=== PATIENT | female | born 1995 | race Caucasian/White ===

== ENCOUNTER → 2017-06-16 | Outpatient (CLI) | payer OTHER ==
[2017-06-16 18:21] LABS: ABSOLUTE EOSINOPHILS # (AUTO) 0.1 10^3/uL (0.0-0.6); ABSOLUTE LYMPHOCYTES (AUTO) 1.9 10^3/uL (0.5-4.7); ABSOLUTE MONOCYTES (AUTO) 0.7 10^3/uL (0.1-1.4); ABSOLUTE NEUT (AUTO) 9.4 10^3/uL (1.7-8.2); BASOPHILS % (AUTO) 0.3 % (0-2); EOSINOPHILS % (AUTO) 1.2 % (0-6); HEMATOCRIT 36.2 % (36.0-47.0); HEMOGLOBIN 12.3 g/dL (12.0-15.5); HGB HCT DIFFERENCE 0.7; LYMPHOCYTES % (AUTO) 15.7 % (13-45); MEAN CORPUSCULAR HEMOGLOBIN 28.7 pg (27.0-33.4); MEAN CORPUSCULAR HGB CONC 33.8 g/dL (32.0-36.0); MEAN CORPUSCULAR VOLUME 85 fl (80-97); MONOCYTES % (AUTO) 5.4 % (3-13); RED BLOOD COUNT 4.27 10^6/uL (3.72-5.28); RED CELL DISTRIBUTION WIDTH 14.2 % (11.5-14.0); SEGMENTED NEUTROPHILS % (AUTO) 77.4 % (42-78); WHITE BLOOD COUNT 12.1 10^3/uL (4.0-10.5)
[2017-06-16 18:50] LABS: ALBUMIN 3.8 g/dL (3.5-5.0); ANION GAP 10 (5-19); BLOOD UREA NITROGEN 9 mg/dL (7-20); CALCIUM 9.1 mg/dL (8.4-10.2); CARBON DIOXIDE 24 mmol/L (22-30); CHLORIDE 105 mmol/L (98-107); CREATININE RESULT 0.57 mg/dL (0.52-1.25); GLUCOSE 75 mg/dL (75-110); POTASSIUM 4.1 mmol/L (3.6-5.0); SODIUM 138.5 mmol/L (137-145); TOTAL PROTEIN 6.7 g/dL (6.3-8.2); URIC ACID 4.1 mg/dL (2.5-6.2)
[2017-06-16 18:52] LABS: ALANINE AMINOTRANSFERASE 23 U/L (9-52); ALKALINE PHOSPHATASE 77 U/L (38-126); ASPARTATE AMINO TRANSFERASE 13 U/L (14-36); BILIRUBIN,DIRECT 0.3 mg/dL (0.0-0.4); BILIRUBIN,TOTAL 0.5 mg/dL (0.2-1.3); LDH 369 U/L (313-618)
== END ==
LOC: OD 17:17
PROVIDERS: ATTEND Student in an Organized Health Care Education/Training Program
DX: O13.9 Gestational [pregnancy-induced] hypertension without significant proteinuria, unspecified trimester (principal)
CPT/HCPCS: 36415; 80053; 83036; 83615; 84550; 85025

== ENCOUNTER 2017-08-22 15:13 | Outpatient (CLI) | payer OTHER ==
--- NOTE | 2017-08-22 17:00 | Non Stress Test Report ---
Non Stress Test Datetime Report Generated by CPN: 08/22/2017 16:51 DEMOGRAPHIC EGA NST: 34.6 INDICATION Indication for Study: Ordered by Provider; Other Indication for Study (NST) Other: maternal obesity MONITORING Monitor Explained: Monitor Explained; Test Explained; Patient Verbalized Understanding Time on Monitor: 08/22/2017 15:30 Time off Monitor: 08/22/2017 16:21 NST Duration: 51 NST INTERVENTIONS NST Interventions: PO Hydration; Reposition Patient; Vibroacoustic Stim BABY A: [id number] BABY A Movement : Present Contraction Frequency : denies FHR Baseline : 155 Accelerations : 15X15 Decelerations : None Variability : Moderate 6-25bpm NST Review: Meets Criteria for Reactive NST NST Review and Verified By : Tylor Stacy RNC NST Results: Reactive NST REPORT Report Trigger: Send Report
== END 2017-08-22 16:22 | disposition home or self-care (01) ==
LOC: LC 15:13
PROVIDERS: ATTEND Obstetrics & Gynecology
PROC: 4A1HXCZ Monitoring of Products of Conception, Cardiac Rate, External Approach (ICD-10-PCS; principal; 2017-08-22)
DX: O99.213 Obesity complicating pregnancy, third trimester (principal); Z3A.34 34 weeks gestation of pregnancy
CPT/HCPCS: 59025

== ENCOUNTER 2017-09-04 12:32 | Outpatient (CLI) | payer OTHER ==
[2017-09-04 13:05] LABS: APPEARANCE,URINE CLOUDY; BILIRUBIN,URINE NEGATIVE (NEGATIVE); CALCIUM OXALATE CRYSTALS,URINE MODERATE /HPF; GLUCOSE, URINE NEGATIVE (NEGATIVE); KETONES,URINE NEGATIVE (NEGATIVE); LEUKOCYTE ESTERASE,URINE TRACE (NEGATIVE); NITRITE,URINE NEGATIVE (NEGATIVE); PROTEIN,URINE NEGATIVE (NEGATIVE); URINE SPECIFIC GRAVITY 1.024; UROBILINOGEN,URINE NEGATIVE mg/dL (<2.0)
[2017-09-04 13:24] LABS: URINE BARBITURATES SCREEN NEGATIVE; URINE METHADONE SCREEN NEGATIVE; URINE OPIATES LOW NEGATIVE; URINE PHENCYCLIDINE SCREEN NEGATIVE
--- NOTE | 2017-09-04 17:40 | RADIOLOGY REPORT (SQ) ---
EXAM DESCRIPTION: U/S PROFILE W/O STRESS COMPLETED DATE/TIME: 09/04/2017 5:15 pm REASON FOR STUDY: NR NST COMPARISON: None. TECHNIQUE: Limited alejo-scale realtime and static images of the fetus to measure specified parameter s. LIMITATIONS: None. FINDINGS: HEART RATE: 175 beats per minute. SABAS: 10.2 cm. POSTURE AND TONE: 2 points. MOVEMENT: 2 points. BREATHING MOVEMENT: 2 points. QUALITATIVE SABAS: 2 points. OTHER: No other significant finding. IMPRESSION: BIOPHYSICAL PROFILE: 06/27. Trimester of : Third - 28 weeks to delivery COMMENT: BREATHING MOVEMENTS: 2 POINTS: PRESENT 0 POINTS: ABSENT MOTION: 2 POINTS: PRESENT 0 POINTS: ABSENT TONE: 2 POINTS: PRESENT 0 POINTS: ABSENT AMNIOTIC FLUID VOLUME: 2 POINTS: LARGEST POCKET GREATER THAN 2 CM DEPTH. 0 POINTS: NO POCKET OF 2 CM. TECHNICAL DOCUMENTATION: JOB ID: [id number] [employer]- All Rights Reserved
== END 2017-09-04 17:31 | disposition home or self-care (01) ==
LOC: OD 12:32 → LC 17:31
PROVIDERS: ATTEND Obstetrics & Gynecology
PROC: 4A1HXCZ Monitoring of Products of Conception, Cardiac Rate, External Approach (ICD-10-PCS; principal; 2017-09-04)
DX: O36.8130 Decreased fetal movements, third trimester, not applicable or unspecified (principal); Z3A.36 36 weeks gestation of pregnancy
CPT/HCPCS: 76819; 80307; 81001

== ENCOUNTER 2019-07-08 04:24 | Emergency (ER) | payer OTHER ==
[2019-07-08 04:57] VITALS: BP 133/83
[2019-07-08 05:54] LABS: ABSOLUTE BASOPHILS # (AUTO) 0.1 10^3/uL (0.0-0.2); ABSOLUTE EOSINOPHILS # (AUTO) 0.1 10^3/uL (0.0-0.6); ABSOLUTE LYMPHOCYTES (AUTO) 1.7 10^3/uL (0.5-4.7); ABSOLUTE MONOCYTES (AUTO) 0.5 10^3/uL (0.1-1.4); ABSOLUTE NEUT (AUTO) 6.1 10^3/uL (1.7-8.2); BASOPHILS % (AUTO) 0.6 % (0-2); EOSINOPHILS % (AUTO) 1.5 % (0-6); HEMOGLOBIN 13.4 g/dL (12.0-15.5); LYMPHOCYTES % (AUTO) 20.1 % (13-45); MEAN CORPUSCULAR HGB CONC 33.5 g/dL (32.0-36.0); MEAN CORPUSCULAR VOLUME 81 fl (80-97); PLATELET COUNT 253 10^3/uL (150-450); RED BLOOD COUNT 4.95 10^6/uL (3.72-5.28); RED CELL DISTRIBUTION WIDTH 14.2 % (11.5-14.0); SEGMENTED NEUTROPHILS % (AUTO) 71.8 % (42-78); TOTAL CELLS COUNTED % (AUTO) 100 %; WHITE BLOOD COUNT 8.5 10^3/uL (4.0-10.5)
[2019-07-08 06:02] LABS: APPEARANCE,URINE CLOUDY; BILIRUBIN,URINE SMALL (NEGATIVE); CALCIUM OXALATE CRYSTALS,URINE MODERATE /HPF; COLOR,URINE YELLOW; GLUCOSE, URINE 50 mg/dL (NEGATIVE); KETONES,URINE TRACE mg/dL (NEGATIVE); LEUKOCYTE ESTERASE,URINE NEGATIVE (NEGATIVE); NITRITE,URINE NEGATIVE (NEGATIVE); PROTEIN,URINE 30 mg/dL (NEGATIVE); URINE SPECIFIC GRAVITY 1.036
[2019-07-08] MEDS ORDERED: RINGERS SOLUTION,LACTATED 1,000 ML IV ONE (06:08)
--- NOTE | 2019-07-08 06:09 | ER Document Report ---
ED General - General Chief Complaint: Nausea/Vomiting Stated Complaint: VOMITING Time Seen by Provider: 07/08/19 05:21 Primary Care Provider: ZENA CASTRO MD [Primary Care Provider] - Follow up in 1 week Mode of Arrival: Ambulatory Information source: Patient Notes: This 23-year-old female presents emergency department with complaints of severe nausea with vomiting twice in the last 2 days. She denies fever denies diarrhea. Reports last menstrual period was in May but she has been trying to have a baby so no control. Reports she is possibly . Denies pain with void, denies vaginal discharge. Reports she did have some abdominal discomfort earlier but no pain now. Reports she has been belching with a sulfa taste. LMB yesterday normal. TRAVEL OUTSIDE OF THE [place] IN LAST 30 DAYS: No - HPI Onset: Other - Related Data Allergies/Adverse Reactions: No Known Allergies Allergy (Verified 09/08/17 15:48) Past Medical History - General Information source: Patient Last Menstrual Period: may - Social History Smoking Status: Never Smoker Cigarette use (# per day): No Frequency of alcohol use: None Drug Abuse: None Occupation: [employer] Lives with: Family Family History: None Patient has suicidal ideation: No Patient has homicidal ideation: No - Medical History Medical History: Negative Renal/ Medical History: Denies: Hx Peritoneal Dialysis Surgical Hx: Negative Review of Systems - Review of Systems Notes: Review HPI for review of systems., All other systems negative Physical Exam - Vital signs Vitals: Temp Pulse Resp BP Pulse Ox 97.9 F 81 17 133/83 H 98 07/08/19 04:47 07/08/19 04:47 07/08/19 04:47 07/08/19 04:47 07/08/19 04:47 - Notes Notes: PHYSICAL EXAMINATION: GENERAL: Well-appearing and in no acute distress HEAD: Atraumatic, normocephalic. EYES: Pupils equal round extraocular movements intact, sclera anicteric, conjunctiva are normal. ENT: nares patent, Moist mucous membranes. NECK: Normal range of motion, supple without lymphadenopathy LUNGS: CTAB and equal. No wheezes rales or rhonchi. HEART: Regular rate and rhythm without murmurs ABDOMEN: Soft, no tenderness. No guarding, no rebound BACK: Denies pain EXTREMITIES: Normal range of motion, no pitting edema. No cyanosis. NEUROLOGICAL: Cranial nerves grossly intact. Normal sensory/motor exams. PSYCH: Normal mood, normal affect. SKIN: Warm, Dry, normal turgor, no rashes or lesions noted Course - Re-evaluation Re-evalutation: 07/08/19 06:23 This 23-year-old female that presents to the emergency department with complaints of nausea and vomiting twice in the past 2 days. Denies diarrhea and fever. Denies pain with void but denies vaginal discharge reports last bowel movement was yesterday was normal. Reports she did have some abdominal discomf ort but no pain now. Reports she has been belching up with sulfa taste. Patient denies recent sick exposure. No other family members are ill. Patient believes she may be because they have been trying to become and has not been using control. Patient reports she has extreme nausea feeling. Will do labs check for treat for nausea and fluids. 07/08/19 06:57 Labs unremarkable. Patient given Zofran for the nausea reports is not helped at all will try Reglan. 07/08/19 07:20 Patient reports she feels 100% better ready to be discharged home because her got called into work. 07/08/19 05:35 07/08/19 05:35 MCV 81 fl (80-97) 07/08/19 05:35 MCH 27.0 pg (27.0-33.4) 07/08/19 05:35 MCHC 33.5 g/dL (32.0-36.0) 07/08/19 05:35 RDW 14.2 % (11.5-14.0) H 07/08/19 05:35 Seg Neutrophils % 71.8 % (42-78) 07/08/19 05:35 Lymphocytes % 20.1 % (13-45) 07/08/19 05:35 Monocytes % 6.0 % (3-13) 07/08/19 05:35 Eosinophils % 1.5 % (0-6) 07/08/19 05:35 Basophils % 0.6 % (0-2) 07/08/19 05:35 Absolute Neutrophils 6.1 10^3/uL (1.7-8.2) 07/08/19 05:35 Absolute Lymphocytes 1.7 10^3/uL (0.5-4.7) 07/08/19 05:35 Absolute Monocytes 0.5 10^3/uL (0.1-1.4) 07/08/19 05:35 Absolute Eosinophils 0.1 10^3/uL (0.0-0.6) 07/08/19 05:35 Absolute Basophils 0.1 10^3/uL (0.0-0.2) 07/08/19 05:35 Chloride 103 mmol/L (98-107) 07/08/19 05:35 Carbon Dioxide 27 mmol/L (22-30) 07/08/19 05:35 Anion Gap 10 (5-19) 07/08/19 05:35 Est GFR ( Amer) > 60 (>60) 07/08/19 05:35 Est GFR (Non-Af Amer) > 60 (>60) 07/08/19 05:35 Glucose 111 mg/dL (75-110) H 07/08/19 05:35 Calcium 9.4 mg/dL (8.4-10.2) 07/08/19 05:35 Total Bilirubin 0.4 mg/dL (0.2-1.3) 07/08/19 05:35 AST 27 U/L (14-36) 07/08/19 05:35 Alkaline Phosphatase 76 U/L (38-126) 07/08/19 05:35 Total Protein 6.9 g/dL (6.3-8.2) 07/08/19 05:35 Albumin 4.1 g/dL (3.5-5.0) 07/08/19 05:35 Serum HCG, Qual NEGATIVE (NEGATIVE) 07/08/19 05:35 Urine Color YELLOW 07/08/19 05:40 Urine Appearance CLOUDY 07/08/19 05:40 Urine pH 6.0 (5.0-9.0) 07/08/19 05:40 Ur Specific Grant 1.036 07/08/19 05:40 Urine Protein 30 mg/dL (NEGATIVE) H 07/08/19 05:40 Urine Glucose (UA) 50 mg/dL (NEGATIVE) H 07/08/19 05:40 Urine Ketones TRACE mg/dL (NEGATIVE) H 07/08/19 05:40 Urine Blood NEGATIVE (NEGATIVE) 07/08/19 05:40 Urine Nitrite NEGATIVE (NEGATIVE) 07/08/19 05:40 Ur Leukocyte Esterase NEGATIVE (NEGATIVE) 07/08/19 05:40 Urine WBC (Auto) 7 /HPF 07/08/19 05:40 Urine RBC (Auto) 24 /HPF 07/08/19 05:40 - Vital Signs Vital signs: Temp Pulse Resp BP Pulse Ox 97.9 F 81 17 133/83 H 98 07/08/19 04:47 07/08/19 04:47 07/08/19 04:47 07/08/19 04:47 07/08/19 04:47 - Laboratory Result Diagrams: 07/08/19 05:35 07/08/19 05:35 Laboratory results interpreted by me: 07/08/19 07/08/19 07/08/19 05:35 05:35 05:40 RDW 14.2 H Glucose 111 H Urine Protein 30 H Urine Glucose (UA) 50 H Urine Ketones TRACE H Urine Bilirubin SMALL H Urine Urobilinogen 2.0 H Discharge - Discharge Clinical Impression: Nausea & vomiting Condition: Stable Disposition: HOME, SELF-CARE Instructions: Antinausea Medication ([facility]), Diarrhea, Nonspecific ([facility]), Intravenous (IV) Fluids ([facility]), Vomiting ([facility]) Additional Instructions: *You have been evaluated for nausea/vomiting *Take medication as prescribed *Ensure adequate fluid intake as discussed to prevent dehydration *Follow up with a primary care provider within one week for recheck *Return to ED for worsening condition, changes, needs Prescriptions: Ondansetron [Zofran Odt 4 mg Tablet] 1 - 2 tab PO Q4H #10 tab.rapdis Referrals: ZENA CASTRO MD [Primary Care Provider] - Follow up in 1 week
[2019-07-08] MEDS ORDERED: ONDANSETRON 4 MG TAB.RAPDIS PO ONE (06:21)
[2019-07-08 06:22] LABS: ALBUMIN 4.1 g/dL (3.5-5.0); ALKALINE PHOSPHATASE 76 U/L (38-126); ANION GAP 10 (5-19); ASPARTATE AMINO TRANSFERASE 27 U/L (14-36); BILIRUBIN,DIRECT 0.3 mg/dL (0.0-0.4); BILIRUBIN,TOTAL 0.4 mg/dL (0.2-1.3); BLOOD UREA NITROGEN 13 mg/dL (7-20); CALCIUM 9.4 mg/dL (8.4-10.2); CARBON DIOXIDE 27 mmol/L (22-30); CHLORIDE 103 mmol/L (98-107); GLUCOSE 111 mg/dL (75-110); POTASSIUM 4.2 mmol/L (3.6-5.0); TOTAL PROTEIN 6.9 g/dL (6.3-8.2)
[2019-07-08] MEDS ORDERED: METOCLOPRAMIDE HCL INJ/PF 10 MG/2 ML SDV IV ONE (06:56)
== END 2019-07-08 07:24 | disposition home or self-care (01) ==
LOC: ER 04:24
DX: R11.2 Nausea with vomiting, unspecified (principal)
CPT/HCPCS: 36415; 84703; 85025; 80053; 81001; S0119; J2765; J7120

== ENCOUNTER 2020-02-25 12:36 | Outpatient (CLI) | payer OTHER, BC ==
[2020-02-25 13:06] LABS: APPEARANCE,URINE SLIGHTLY-CLOUDY; BILIRUBIN,URINE NEGATIVE (NEGATIVE); COLOR,URINE DARK YELLOW; GLUCOSE, URINE NEGATIVE (NEGATIVE); KETONES,URINE NEGATIVE (NEGATIVE); LEUKOCYTE ESTERASE,URINE NEGATIVE (NEGATIVE); NITRITE,URINE NEGATIVE (NEGATIVE); PROTEIN,URINE 30 mg/dL (NEGATIVE); URINE SPECIFIC GRAVITY 1.028; UROBILINOGEN,URINE NEGATIVE mg/dL (<2.0)
[2020-02-25 13:11] LABS: ABSOLUTE BASOPHILS # (AUTO) 0.1 10^3/uL (0.0-0.2); ABSOLUTE EOSINOPHILS # (AUTO) 0.1 10^3/uL (0.0-0.6); ABSOLUTE LYMPHOCYTES (AUTO) 1.6 10^3/uL (0.5-4.7); ABSOLUTE MONOCYTES (AUTO) 0.8 10^3/uL (0.1-1.4); ABSOLUTE NEUT (AUTO) 9.7 10^3/uL (1.7-8.2); BASOPHILS % (AUTO) 0.6 % (0-2); EOSINOPHILS % (AUTO) 1.1 % (0-6); HEMATOCRIT 36.4 % (36.0-47.0); HEMOGLOBIN 12.6 g/dL (12.0-15.5); LYMPHOCYTES % (AUTO) 13.1 % (13-45); MEAN CORPUSCULAR HEMOGLOBIN 28.9 pg (27.0-33.4); MEAN CORPUSCULAR HGB CONC 34.7 g/dL (32.0-36.0); MEAN CORPUSCULAR VOLUME 83 fl (80-97); MONOCYTES % (AUTO) 6.8 % (3-13); PLATELET COUNT 223 10^3/uL (150-450); RED BLOOD COUNT 4.37 10^6/uL (3.72-5.28); RED CELL DISTRIBUTION WIDTH 14.9 % (11.5-14.0); SEGMENTED NEUTROPHILS % (AUTO) 78.4 % (42-78); TOTAL CELLS COUNTED % (AUTO) 100 %; WHITE BLOOD COUNT 12.4 10^3/uL (4.0-10.5)
[2020-02-25 13:38] LABS: URINE AMPHETAMINES SCREEN NEGATIVE; URINE BARBITURATES SCREEN NEGATIVE; URINE BENZODIAZEPINES SCREEN NEGATIVE; URINE COCAINE SCREEN NEGATIVE; URINE MARIJUANA (THC) SCREEN NEGATIVE; URINE METHADONE SCREEN NEGATIVE; URINE PHENCYCLIDINE SCREEN NEGATIVE
[2020-02-25 13:40] LABS: URINE PRO/CREAT RATIO RESULT CALCULATION NOT DONE mg/mg; URINE PROTEIN < 5.0 mg/dL (<12)
[2020-02-25 13:41] LABS: ALBUMIN 3.7 g/dL (3.5-5.0); ALKALINE PHOSPHATASE 115 U/L (38-126); ANION GAP 8 (5-19); ASPARTATE AMINO TRANSFERASE 17 U/L (14-36); BILIRUBIN,DIRECT 0.2 mg/dL (0.0-0.4); BILIRUBIN,TOTAL 0.3 mg/dL (0.2-1.3); BLOOD UREA NITROGEN 6 mg/dL (7-20); CALCIUM 9.3 mg/dL (8.4-10.2); CARBON DIOXIDE 22 mmol/L (22-30); CHLORIDE 107 mmol/L (98-107); GLUCOSE 89 mg/dL (75-110); TOTAL PROTEIN 6.7 g/dL (6.3-8.2); URIC ACID 3.8 mg/dL (2.5-6.2)
[2020-02-25] MEDS ORDERED: ACETAMINOPHEN 325 MG TABLET ONE (14:04)
[2020-02-25] MEDS ORDERED: RINGERS SOLUTION,LACTATED 1,000 ML IV PRN (14:06)
[2020-02-25] MEDS ORDERED: ACETAMINOPHEN 325 MG TABLET PO ONE (14:06)
--- NOTE | 2020-02-25 17:42 | Non Stress Test Report ---
Non Stress Test Datetime Report Generated by CPN: 02/25/2020 17:41 DEMOGRAPHIC EGA NST: 34.0 INDICATION Indication for Study (NST) Other: Maternal obesity with dehydration VITAL SIGNS Temperature - NST: 98.6 Pulse - NST: 92 RESP - NST: 18 NBPSYS NST: 129 NBPDIA NST: 60 MONITORING Monitor Explained: Monitor Explained; Test Explained; Patient Verbalized Understanding Time on Monitor: 02/25/2020 14:50 Time off Monitor: 02/25/2020 15:10 NST Duration: 20 NST INTERVENTIONS NST Interventions: PO Hydration Physician Notified NST: Cat Diaz CNM BABY A: [id number] BABY A Movement : Present Contraction Frequency : irregular FHR Baseline : 140 Accelerations : 15X15 Decelerations : None Variability : Moderate 6-25bpm NST Review: Meets Criteria for Reactive NST NST Review and Verified By : ELIA Hi Results: Reactive NST REPORT Report Trigger: Send Report
== END 2020-02-25 17:22 | disposition home or self-care (01) ==
LOC: LC 12:36
PROVIDERS: ATTEND Student in an Organized Health Care Education/Training Program
DX: O99.283 Endocrine, nutritional and metabolic diseases complicating pregnancy, third trimester (principal); E86.0 Dehydration; O99.213 Obesity complicating pregnancy, third trimester; Z3A.34 34 weeks gestation of pregnancy
CPT/HCPCS: 36415; 59025; 80053; 80307; 81001; 82570; 83615; 84156; 84550; 85025; 94760